=== PATIENT | female | born 1965 | race Two or more races ===

== ENCOUNTER 2021-11-19 17:29 | Inpatient (IN) | payer OTHER ==
[2021-11-19] MEDS ORDERED: ONDANSETRON *ODT* 4 MG TABLET SL PRN (19:53)
[2021-11-19] MEDS ORDERED: MAG HYDROX/AL HYDROX/SIMETH 30 ML UNIT-DOSE CUP PO PRN (19:53)
[2021-11-19] MEDS ORDERED: ACETAMINOPHEN 325 MG TABLET (FP) PO PRN ×2 (19:53)
[2021-11-19] MEDS ORDERED: LOPERAMIDE HCL 2 MG CAPSULE PO PRN (19:53)
[2021-11-19] MEDS ORDERED: MAGNESIUM HYDROX 2400MG/30ML ORAL SUSPENSION 30 ML CUP PO PRN (19:53)
[2021-11-19] MEDS ORDERED: MENTHOL/PHENOL 1 EACH UD MM PRN (19:53)
[2021-11-19] MEDS ORDERED: BISMUTH SUBSALICYLATE 524 MG/30 ML PO PRN (19:53)
[2021-11-19] MEDS ORDERED: MAGNESIUM CITRATE 300 ML BOTTLE PO PRN (19:53)
[2021-11-20 00:50] VITALS: BMI 18.6
[2021-11-20] MEDS: THIAMINE HCL 100 MG TABLET (FP) PO SCH ×2 (02:30→22:50)
[2021-11-20] MEDS: MELATONIN 5 MG TABLETS PO PRN ×2 (02:31→22:50)
[2021-11-20] MEDS ORDERED: chlordiazePOXIDE HCL 25 MG CAPSULE PO PRN (09:30)
[2021-11-20] MEDS ORDERED: oxyCODONE HCL 10 MG SUSTAINED ACTING TABLET PO PRN (09:30)
[2021-11-20 11:19] LABS: HIV INTERPRETATION NEGATIVE (NEGATIVE)
[2021-11-20] MEDS ORDERED: chlordiazePOXIDE HCL 25 MG CAPSULE ONE (11:32)
[2021-11-20] MEDS: chlordiazePOXIDE HCL 25 MG CAPSULE PO SCH ×3 (11:39→22:51)
[2021-11-20] MEDS ORDERED: FLU VACC QS2021-22(6MOS UP)/PF 60 MCG/0.5 ML SYRINGE IM ONE (12:00)
[2021-11-20 12:10] LABS: SARS-CoV-2 NAA Not Detected (Not Detected)
[2021-11-20 14:00] LABS: BASO % 0.6 % (0-2.0); EOS % 7.4 % (0-4.5); HEMATOCRIT 44.9 % (32.4-45.2); HEMOGLOBIN 14.3 GM/dL (10.7-15.3); LYMPH % 38.6 % (8-40); MCH 26.3 pg (25.7-33.7); MCHC 31.8 g/dl (32.0-36.0); MEAN CELL VOLUME 82.7 fl (80-96); MEAN PLT VOLUME 8.7 fl (7.5-11.1); MONO % 9.4 % (3.8-10.2); PLATELET COUNT 266 10^3/uL (134-434); RBC 5.43 M/mm3 (3.60-5.2); RDW 14.5 % (11.6-15.6); WHITE BLOOD COUNT 4.3 K/mm3 (4.0-10.0)
[2021-11-20 14:17] LABS: ALBUMIN 3.8 g/dl (3.4-5.0)
[2021-11-20 14:18] LABS: BLOOD UREA NITROGEN 26.4 mg/dL (7-18); CALCIUM 9.8 mg/dL (8.5-10.1)
[2021-11-20 14:20] LABS: TOT PROT 7.3 g/dl (6.4-8.2)
[2021-11-20 14:22] LABS: BILIRUBIN,TOTAL 0.8 mg/dL (0.2-1)
[2021-11-20] MEDS: PRENATAL VITAMINS W/ FOLIC ACID TABLET (FP) PO SCH (15:00)
[2021-11-20] MEDS: ALBUTEROL SO4 HFA INHALER IH SCH ×4 (15:01→22:50)
[2021-11-20] MEDS: GABAPENTIN 100 MG CAPSULE PO SCH (15:01)
[2021-11-21] MEDS: ALBUTEROL SO4 HFA INHALER IH SCH ×5 (04:11→22:05)
[2021-11-21] MEDS: chlordiazePOXIDE HCL 25 MG CAPSULE PO SCH ×4 (06:46→22:53)
[2021-11-21] MEDS: PRENATAL VITAMINS W/ FOLIC ACID TABLET (FP) PO SCH (10:25)
[2021-11-21] MEDS: GABAPENTIN 100 MG CAPSULE PO SCH (10:25)
[2021-11-21] MEDS: hydrOXYzine PAMOATE 25 MG CAPSULE (FP) PO PRN (10:25)
[2021-11-21] MEDS: METHOCARBAMOL 500 MG TABLET PO PRN (10:25)
[2021-11-21] MEDS: THIAMINE HCL 100 MG TABLET (FP) PO SCH (22:52)
[2021-11-21] MEDS: MELATONIN 5 MG TABLETS PO PRN (22:53)
[2021-11-22] MEDS: chlordiazePOXIDE HCL 25 MG CAPSULE PO SCH ×4 (06:54→22:36)
[2021-11-22] MEDS: ALBUTEROL SO4 HFA INHALER IH SCH ×7 (06:56→22:36)
[2021-11-22] MEDS: PRENATAL VITAMINS W/ FOLIC ACID TABLET (FP) PO SCH (10:27)
[2021-11-22] MEDS: hydrOXYzine PAMOATE 25 MG CAPSULE (FP) PO PRN ×2 (10:27→17:44)
[2021-11-22] MEDS: METHOCARBAMOL 500 MG TABLET PO PRN ×2 (10:27→17:44)
[2021-11-22] MEDS: GABAPENTIN 100 MG CAPSULE PO SCH (10:28)
[2021-11-22] MEDS: THIAMINE HCL 100 MG TABLET (FP) PO SCH (22:36)
[2021-11-23] MEDS ORDERED: chlordiazePOXIDE HCL 10 MG CAPSULE PO PRN
[2021-11-23] MEDS: chlordiazePOXIDE HCL 10 MG CAPSULE PO SCH ×4 (06:13→22:42)
[2021-11-23] MEDS: ALBUTEROL SO4 HFA INHALER IH SCH ×5 (06:17→22:52)
[2021-11-23] MEDS: METHOCARBAMOL 500 MG TABLET PO PRN (10:18)
[2021-11-23] MEDS: hydrOXYzine PAMOATE 25 MG CAPSULE (FP) PO PRN ×3 (10:18→22:42)
[2021-11-23] MEDS: PRENATAL VITAMINS W/ FOLIC ACID TABLET (FP) PO SCH (10:18)
[2021-11-23] MEDS: GABAPENTIN 100 MG CAPSULE PO SCH (10:19)
[2021-11-23] MEDS: IBUPROFEN 400 MG TABLET (FP) PO PRN (11:33)
[2021-11-23] MEDS: MELATONIN 5 MG TABLETS PO PRN (22:42)
[2021-11-23] MEDS: THIAMINE HCL 100 MG TABLET (FP) PO SCH (22:42)
[2021-11-24] MEDS: IBUPROFEN 400 MG TABLET (FP) PO PRN ×2 (01:34→15:57)
[2021-11-24] MEDS: METHOCARBAMOL 500 MG TABLET PO PRN ×2 (01:35→10:13)
[2021-11-24] MEDS: ALBUTEROL SO4 HFA INHALER IH SCH ×6 (04:08→22:44)
[2021-11-24] MEDS: chlordiazePOXIDE HCL 10 MG CAPSULE PO SCH ×2 (06:04→18:00)
[2021-11-24] MEDS: PRENATAL VITAMINS W/ FOLIC ACID TABLET (FP) PO SCH (10:13)
[2021-11-24] MEDS: hydrOXYzine PAMOATE 25 MG CAPSULE (FP) PO PRN ×3 (10:13→22:26)
[2021-11-24] MEDS: GABAPENTIN 100 MG CAPSULE PO SCH (10:14)
[2021-11-24] MEDS: MELATONIN 5 MG TABLETS PO PRN (22:26)
[2021-11-24] MEDS: THIAMINE HCL 100 MG TABLET (FP) PO SCH (22:26)
[2021-11-25] MEDS: ALBUTEROL SO4 HFA INHALER IH SCH ×3 (01:00→10:04)
[2021-11-25] MEDS: IBUPROFEN 400 MG TABLET (FP) PO PRN ×2 (04:04→10:04)
[2021-11-25] MEDS ORDERED: chlordiazePOXIDE HCL 10 MG CAPSULE PO ONE (05:00)
[2021-11-25 09:08] VITALS: BP 133/76; PULSE 94; TEMP 98.2
[2021-11-25] MEDS: GABAPENTIN 100 MG CAPSULE PO SCH (10:04)
[2021-11-25] MEDS: PRENATAL VITAMINS W/ FOLIC ACID TABLET (FP) PO SCH (10:04)
== END 2021-11-25 12:50 | disposition home or self-care (01) | DRG 774 ==
LOC: YASAS 17:29 → Y6N 11-20 13:24
PROVIDERS: ADMIT Allergy & Immunology; ATTEND Allergy & Immunology
PROC: HZ2ZZZZ Detoxification Services for Substance Abuse Treatment (ICD-10-PCS; principal; 2021-11-20)
DX: F10.230 Alcohol dependence with withdrawal, uncomplicated (principal); F13.230 Sedative, hypnotic or anxiolytic dependence with withdrawal, uncomplicated; F14.20 Cocaine dependence, uncomplicated; F12.20 Cannabis dependence, uncomplicated; F17.210 Nicotine dependence, cigarettes, uncomplicated; F19.24 Other psychoactive substance dependence with psychoactive substance-induced mood disorder; F41.8 Other specified anxiety disorders; F32.A Depression, unspecified; F43.10 Post-traumatic stress disorder, unspecified; J45.20 Mild intermittent asthma, uncomplicated; B18.2 Chronic viral hepatitis C; R79.89 Other specified abnormal findings of blood chemistry; Z62.810 Personal history of physical and sexual abuse in childhood; R63.4 Abnormal weight loss; Z68.1 Body mass index [BMI] 19.9 or less, adult; Z91.011 Allergy to milk products; Z91.018 Allergy to other foods
CPT/HCPCS: 36415; 80053; 84520; 85025; 86780; 87389; 87811; 90686; C9803-CS; G0008; U0003; U0005

== ENCOUNTER 2022-04-18 17:07 | Inpatient (IN) | payer OTHER ==
[2022-04-18 19:54] VITALS: BMI 19.5
[2022-04-18] MEDS ORDERED: IBUPROFEN 600 MG TABLET (FP) PO PRN (21:28)
[2022-04-18] MEDS ORDERED: guaiFENesin 200 MG/10 ML 10 ML UNIT-DOSE CUPS PO PRN (21:28)
[2022-04-18] MEDS ORDERED: LOPERAMIDE HCL 2 MG CAPSULE PO PRN (21:28)
[2022-04-18] MEDS ORDERED: MAGNESIUM CITRATE 300 ML BOTTLE PO PRN (21:28)
[2022-04-18] MEDS ORDERED: MAG HYDROX/AL HYDROX/SIMETH 30 ML UNIT-DOSE CUP PO PRN (21:28)
[2022-04-18] MEDS ORDERED: BISMUTH SUBSALICYLATE 524 MG/30 ML PO PRN (21:28)
[2022-04-18] MEDS ORDERED: ACETAMINOPHEN 325 MG TABLET (FP) PO PRN ×2 (21:28)
[2022-04-18] MEDS ORDERED: NICOTINE POLACRILEX 2 MG GUM BUC PRN (21:28)
[2022-04-18] MEDS ORDERED: MAGNESIUM HYDROX 2400MG/30ML ORAL SUSPENSION 30 ML CUP PO PRN (21:28)
[2022-04-18] MEDS ORDERED: ONDANSETRON *ODT* 4 MG TABLET SL PRN (21:28)
[2022-04-18] MEDS ORDERED: DICYCLOMINE HCL 10 MG CAPSULE PO PRN (21:28)
[2022-04-18] MEDS ORDERED: BENZOCAINE/MENTHOL (CHLORASEPTIC ) LOZENGE MM PRN (21:28)
[2022-04-18] MEDS ORDERED: IBUPROFEN 400 MG TABLET (FP) PO PRN (21:28)
[2022-04-18] MEDS ORDERED: P-EPHED 60MG/TRIPROLIDI 2.5MG TABLET PO PRN (21:28)
[2022-04-18] MEDS ORDERED: diazePAM 5 MG TABLET PO PRN (21:30)
[2022-04-19] MEDS: MELATONIN 5 MG TABLETS PO PRN ×2 (00:03→22:36)
[2022-04-19] MEDS: THIAMINE HCL 100 MG TABLET (FP) PO SCH ×2 (00:04→22:36)
[2022-04-19] MEDS: hydrOXYzine PAMOATE 25 MG CAPSULE (FP) PO PRN (00:04)
[2022-04-19] MEDS: PRENATAL VITAMINS W/ FOLIC ACID TABLET (FP) PO SCH (10:30)
[2022-04-19 10:51] LABS: HEMATOCRIT 40.7 % (32.4-45.2); HEMOGLOBIN 13.4 GM/dL (10.7-15.3); MCH 27.2 pg (25.7-33.7); MEAN CELL VOLUME 82.6 fl (80-96); MEAN PLT VOLUME 8.8 fl (7.5-11.1); PLATELET COUNT 280 10^3/uL (134-434); RBC 4.92 M/mm3 (3.60-5.2); RDW 14.1 % (11.6-15.6); WHITE BLOOD COUNT 4.2 K/mm3 (4.0-10.0)
[2022-04-19 11:22] LABS: CALCIUM 8.9 mg/dL (8.5-10.1)
[2022-04-19 11:23] LABS: ALBUMIN 3.5 g/dl (3.4-5.0); BLOOD UREA NITROGEN 19.1 mg/dL (7-18)
[2022-04-19 11:26] LABS: CREATININE 0.8 mg/dL (0.55-1.3)
[2022-04-19 11:27] LABS: BILIRUBIN,TOTAL 1.9 mg/dL (0.2-1); TOT PROT 7.1 g/dl (6.4-8.2)
[2022-04-19] MEDS ORDERED: chlordiazePOXIDE HCL 25 MG CAPSULE PO PRN (18:11)
[2022-04-19] MEDS: chlordiazePOXIDE HCL 25 MG CAPSULE PO SCH (22:36)
[2022-04-19] MEDS: METHOCARBAMOL 500 MG TABLET PO PRN (22:40)
[2022-04-20] MEDS: chlordiazePOXIDE HCL 25 MG CAPSULE PO SCH ×4 (05:59→23:22)
[2022-04-20] MEDS: METHOCARBAMOL 500 MG TABLET PO PRN ×2 (06:02→19:04)
[2022-04-20] MEDS: PRENATAL VITAMINS W/ FOLIC ACID TABLET (FP) PO SCH (11:02)
[2022-04-20] MEDS: hydrOXYzine PAMOATE 25 MG CAPSULE (FP) PO PRN ×2 (19:04→23:21)
[2022-04-20] MEDS: THIAMINE HCL 100 MG TABLET (FP) PO SCH (23:21)
[2022-04-20] MEDS: MELATONIN 5 MG TABLETS PO PRN (23:21)
[2022-04-21] MEDS: chlordiazePOXIDE HCL 25 MG CAPSULE PO SCH ×3 (06:03→18:00)
[2022-04-21] MEDS: PRENATAL VITAMINS W/ FOLIC ACID TABLET (FP) PO SCH (10:42)
[2022-04-21 13:09] VITALS: PULSE 88; RESP 18
[2022-04-21 18:10] VITALS: TEMP 97.1
[2022-04-21 18:11] VITALS: BP 136/73
[2022-04-22] MEDS ORDERED: chlordiazePOXIDE HCL 10 MG CAPSULE PO PRN
[2022-04-22] MEDS ORDERED: chlordiazePOXIDE HCL 10 MG CAPSULE PO SCH (05:00)
[2022-04-23] MEDS ORDERED: chlordiazePOXIDE HCL 10 MG CAPSULE PO SCH (05:00)
[2022-04-24] MEDS ORDERED: chlordiazePOXIDE HCL 10 MG CAPSULE PO ONE (05:00)
== END 2022-04-21 18:30 | disposition left against medical advice (07) | DRG 770 ==
LOC: YASAS 17:07 → Y3N 23:25 → Y6N 04-20 08:53
PROVIDERS: ADMIT Allergy & Immunology; ATTEND Surgery
PROC: HZ2ZZZZ Detoxification Services for Substance Abuse Treatment (ICD-10-PCS; principal; 2022-04-18)
DX: F10.230 Alcohol dependence with withdrawal, uncomplicated (principal); F12.20 Cannabis dependence, uncomplicated; F17.210 Nicotine dependence, cigarettes, uncomplicated; F43.10 Post-traumatic stress disorder, unspecified; Z62.810 Personal history of physical and sexual abuse in childhood; Z91.410 Personal history of adult physical and sexual abuse; Z86.19 Personal history of other infectious and parasitic diseases; Z28.310 Unvaccinated for COVID-19; Z91.011 Allergy to milk products; Z91.018 Allergy to other foods
CPT/HCPCS: 36415; 80053; 82247; 84520; 85027; 86780; 87811; C9803-CS; U0003; U0005

== ENCOUNTER 2023-09-21 11:34 | Inpatient (IN) | payer OTHER ==
[2023-09-21 12:11] VITALS: BMI 19.9
[2023-09-21] MEDS ORDERED: BENZOCAINE/MENTHOL (CHLORASEPTIC ) LOZENGE MM PRN (13:36)
[2023-09-21] MEDS ORDERED: BISMUTH SUBSALICYLATE 524 MG/30 ML PO PRN (13:36)
[2023-09-21] MEDS ORDERED: MAGNESIUM HYDROX 2400MG/30ML ORAL SUSPENSION 30 ML CUP PO PRN (13:36)
[2023-09-21] MEDS ORDERED: BENZONATATE 200 MG CAPSULE PO PRN (13:36)
[2023-09-21] MEDS ORDERED: NALOXONE HCL 0.4 MG/ML VIAL IM PRN (13:36)
[2023-09-21] MEDS ORDERED: IBUPROFEN 600 MG TABLET (FP) PO PRN (13:36)
[2023-09-21] MEDS ORDERED: NALOXONE HCL (KLOXXADO) 8 MG SPRAY NS PRN (13:36)
[2023-09-21] MEDS ORDERED: ONDANSETRON *ODT* 4 MG TABLET SL PRN (13:36)
[2023-09-21] MEDS ORDERED: MAG HYDROX/AL HYDROX/SIMETH 30 ML UNIT-DOSE CUP PO PRN (13:36)
[2023-09-21] MEDS ORDERED: ACETAMINOPHEN 325 MG TABLET (FP) PO PRN (13:36)
[2023-09-21] MEDS ORDERED: DICYCLOMINE HCL 10 MG CAPSULE PO PRN (13:36)
[2023-09-21] MEDS ORDERED: POLYETHYLENE GLYCOL (HEALTHYLAX) 3350 17 GM PACKET PO PRN (13:36)
[2023-09-21] MEDS ORDERED: LOPERAMIDE HCL 2 MG CAPSULE PO PRN (13:36)
[2023-09-21] MEDS ORDERED: METHOCARBAMOL 500 MG TABLET PO PRN (13:36)
[2023-09-21] MEDS ORDERED: IBUPROFEN 400 MG TABLET (FP) PO PRN (13:36)
[2023-09-21] MEDS ORDERED: guaiFENesin 600 MG TABLET.ER (FP) PO PRN (13:36)
[2023-09-21] MEDS ORDERED: ALBUTEROL SO4 HFA INHALER IH PRN (13:39)
[2023-09-21] MEDS: PRENATAL VITAMINS W/ FOLIC ACID TABLET (FP) PO SCH (15:14)
[2023-09-21] MEDS: chlordiazePOXIDE HCL 25 MG CAPSULE PO SCH ×2 (17:28→22:18)
[2023-09-21] MEDS ORDERED: MELATONIN 5 MG TABLETS PO SCH (22:00)
[2023-09-21] MEDS ORDERED: SUVOREXANT 10 MG TABLET PO PRN (22:00)
[2023-09-21] MEDS: SACUBITRIL/VALSARTAN 49 MG-51 MG TABLET PO SCH (22:17)
[2023-09-21] MEDS: THIAMINE HCL 100 MG TABLET (FP) PO SCH (22:17)
[2023-09-22] MEDS: SODIUM CHLORIDE NASAL SPRAY 44 ML BOTTLE NS PRN ×2 (02:36→19:45)
[2023-09-22] MEDS: chlordiazePOXIDE HCL 25 MG CAPSULE PO PRN ×2 (02:37→19:48)
[2023-09-22] MEDS: chlordiazePOXIDE HCL 25 MG CAPSULE PO SCH ×4 (05:31→22:18)
[2023-09-22] MEDS: ASPIRIN 81 MG CHEWABLE TABLETS PO SCH (10:28)
[2023-09-22] MEDS: SACUBITRIL/VALSARTAN 49 MG-51 MG TABLET PO SCH ×2 (10:28→22:17)
[2023-09-22] MEDS: PRENATAL VITAMINS W/ FOLIC ACID TABLET (FP) PO SCH (10:28)
[2023-09-22] MEDS: GABAPENTIN 100 MG CAPSULE PO SCH (10:29)
[2023-09-22 11:42] LABS: POTASSIUM 3.7 mmol/L (3.5-5.1)
[2023-09-22 11:48] LABS: CALCIUM 8.9 mg/dL (8.5-10.1)
[2023-09-22 11:49] LABS: ALBUMIN 2.9 g/dl (3.4-5.0); BLOOD UREA NITROGEN 19.2 mg/dL (7-18)
[2023-09-22 11:51] LABS: CREATININE 1.1 mg/dL (0.55-1.3)
[2023-09-22 11:53] LABS: BILIRUBIN,TOTAL 0.7 mg/dL (0.2-1); TOT PROT 6.4 g/dl (6.4-8.2)
[2023-09-22 12:24] LABS: HEMATOCRIT 37.2 % (32.4-45.2); HEMOGLOBIN 11.9 GM/dL (10.7-15.3); MCH 26.1 pg (25.7-33.7); MEAN CELL VOLUME 81.6 fl (80-96); MEAN PLT VOLUME 9.6 fl (7.5-11.1); PLATELET COUNT 262 10^3/uL (134-434); RBC 4.56 M/mm3 (3.60-5.2); RDW 14.4 % (11.6-15.6); WHITE BLOOD COUNT 8.9 K/mm3 (4.0-10.0)
[2023-09-22] MEDS ORDERED: LACTULOSE 20 GM/30 ML UDC (FOR ORAL USE ONLY) PO ONE (15:45)
[2023-09-22] MEDS ORDERED: LACTULOSE 20 GM/30 ML UDC (FOR ORAL USE ONLY) PO SCH (18:00)
[2023-09-22] MEDS: RIFAXIMIN 550 MG TABLET PO SCH (22:18)
[2023-09-22] MEDS: THIAMINE HCL 100 MG TABLET (FP) PO SCH (22:18)
[2023-09-23] MEDS: SODIUM CHLORIDE NASAL SPRAY 44 ML BOTTLE NS PRN ×4 (02:32→22:23)
[2023-09-23] MEDS: chlordiazePOXIDE HCL 25 MG CAPSULE PO SCH ×4 (05:13→22:13)
[2023-09-23] MEDS: GABAPENTIN 100 MG CAPSULE PO SCH (10:32)
[2023-09-23] MEDS: ASPIRIN 81 MG CHEWABLE TABLETS PO SCH (10:32)
[2023-09-23] MEDS: SACUBITRIL/VALSARTAN 49 MG-51 MG TABLET PO SCH ×2 (10:32→22:12)
[2023-09-23] MEDS: RIFAXIMIN 550 MG TABLET PO SCH ×2 (10:32→22:12)
[2023-09-23] MEDS: PRENATAL VITAMINS W/ FOLIC ACID TABLET (FP) PO SCH (10:32)
[2023-09-23] MEDS: THIAMINE HCL 100 MG TABLET (FP) PO SCH (22:12)
[2023-09-24] MEDS ORDERED: chlordiazePOXIDE HCL 10 MG CAPSULE PO PRN
[2023-09-24] MEDS: chlordiazePOXIDE HCL 10 MG CAPSULE PO SCH ×5 (05:29→22:38)
[2023-09-24] MEDS: ASPIRIN 81 MG CHEWABLE TABLETS PO SCH (10:43)
[2023-09-24] MEDS: GABAPENTIN 100 MG CAPSULE PO SCH (10:43)
[2023-09-24] MEDS: PRENATAL VITAMINS W/ FOLIC ACID TABLET (FP) PO SCH (10:43)
[2023-09-24] MEDS: RIFAXIMIN 550 MG TABLET PO SCH ×2 (10:43→22:41)
[2023-09-24] MEDS: SACUBITRIL/VALSARTAN 49 MG-51 MG TABLET PO SCH ×2 (10:44→22:40)
[2023-09-24] MEDS: SODIUM CHLORIDE NASAL SPRAY 44 ML BOTTLE NS PRN ×2 (11:44→21:31)
[2023-09-24] MEDS ORDERED: EMTRICITABINE/TENOFOV ALAFENAM (DESCOVY) TABLET PO PRN (15:52)
[2023-09-24] MEDS: SUVOREXANT 15 MG TABLET PO PRN (22:40)
[2023-09-24] MEDS: THIAMINE HCL 100 MG TABLET (FP) PO SCH (22:41)
[2023-09-24] MEDS: hydrOXYzine PAMOATE 25 MG CAPSULE (FP) PO PRN (22:41)
[2023-09-25] MEDS: chlordiazePOXIDE HCL 10 MG CAPSULE PO SCH ×2 (05:32→17:48)
[2023-09-25] MEDS: PRENATAL VITAMINS W/ FOLIC ACID TABLET (FP) PO SCH (10:26)
[2023-09-25] MEDS: GABAPENTIN 100 MG CAPSULE PO SCH (10:26)
[2023-09-25] MEDS: RIFAXIMIN 550 MG TABLET PO SCH ×2 (10:26→22:19)
[2023-09-25] MEDS: SACUBITRIL/VALSARTAN 49 MG-51 MG TABLET PO SCH ×2 (10:26→22:20)
[2023-09-25] MEDS: ASPIRIN 81 MG CHEWABLE TABLETS PO SCH (10:26)
[2023-09-25] MEDS: SODIUM CHLORIDE NASAL SPRAY 44 ML BOTTLE NS PRN ×2 (11:24→17:50)
[2023-09-25] MEDS: hydrOXYzine PAMOATE 25 MG CAPSULE (FP) PO PRN (17:51)
[2023-09-25] MEDS: THIAMINE HCL 100 MG TABLET (FP) PO SCH (22:19)
[2023-09-25] MEDS: SUVOREXANT 15 MG TABLET PO PRN (22:19)
[2023-09-26] MEDS ORDERED: chlordiazePOXIDE HCL 10 MG CAPSULE PO ONE (05:00)
[2023-09-26 06:49] VITALS: RESP 17
[2023-09-26] MEDS: GABAPENTIN 100 MG CAPSULE PO SCH (09:03)
[2023-09-26] MEDS: ASPIRIN 81 MG CHEWABLE TABLETS PO SCH (09:03)
[2023-09-26] MEDS: RIFAXIMIN 550 MG TABLET PO SCH (09:03)
[2023-09-26] MEDS: SACUBITRIL/VALSARTAN 49 MG-51 MG TABLET PO SCH (09:04)
[2023-09-26] MEDS: PRENATAL VITAMINS W/ FOLIC ACID TABLET (FP) PO SCH (09:04)
[2023-09-26 09:49] VITALS: BP 160/79; PULSE 102; TEMP 98
== END 2023-09-26 09:06 | disposition home or self-care (01) | DRG 774 ==
LOC: YASAS 11:34 → Y6N 14:04
PROVIDERS: ADMIT Allergy & Immunology; ATTEND Allergy & Immunology
PROC: HZ2ZZZZ Detoxification Services for Substance Abuse Treatment (ICD-10-PCS; principal; 2023-09-21)
DX: F10.230 Alcohol dependence with withdrawal, uncomplicated (principal); F14.20 Cocaine dependence, uncomplicated; F12.20 Cannabis dependence, uncomplicated; F19.282 Other psychoactive substance dependence with psychoactive substance-induced sleep disorder; F19.24 Other psychoactive substance dependence with psychoactive substance-induced mood disorder; F32.9 Major depressive disorder, single episode, unspecified; E72.20 Disorder of urea cycle metabolism, unspecified; G62.9 Polyneuropathy, unspecified; I10 Essential (primary) hypertension; J45.20 Mild intermittent asthma, uncomplicated; B18.2 Chronic viral hepatitis C; R63.4 Abnormal weight loss; Z68.1 Body mass index [BMI] 19.9 or less, adult; Z62.810 Personal history of physical and sexual abuse in childhood; Z28.310 Unvaccinated for COVID-19; Z28.9 Immunization not carried out for unspecified reason
CPT/HCPCS: 36415; 80053; 80307; 82140; 85027; 86780; 87635; 87811